=== PATIENT | male | born 1975 | race Caucasian/White ===

== ENCOUNTER 2017-10-11 06:16 | Emergency (ER) | payer SELFPAY ==
[~2017-10-11] VITALS: Ht 170.2 cm; Wt 86.2 kg
[2017-10-11 06:45] VITALS: BP 112/30
[2017-10-11 06:55] VITALS: BP 112/30
--- NOTE | 2017-10-11 07:11 | Emergency Room Report ---
History of Present Illness General Chief Complaint: Chest Pain Source: Patient Present Illness HPI 42YOM walk-in with chest pain for 2 days Substernal, left sided, sharp. Non radiating. No SOB, nausea/vomiting Denies ETOH, drug use +smoker No medical problems Also "Feels dehydrated" - hasnt slept in a week. Homeless. Traveling [place] from [place] of [place]. Denies nausea/vomiting, diarrhea, sick contacts Allergies: Coded Allergies: No Known Allergies (Unverified , 10/11/17) Patient History Past Medical History: none Past Surgical History: none Pertinent Family History: none Social History: Reports: smoking Immunizations: UTD Reviewed Nursing Documentation: PMH: Agreed, PSxH: Agreed Nursing Documentation-PMH Past Medical History: No Stated History Review of Systems All Other Systems: negative except mentioned in HPI Physical Exam Vital Signs Date Time Temp Pulse Resp B/P (MAP) Pulse Ox O2 Delivery O2 Flow Rate FiO2 10/11/17 06:19 97.9 107 20 112/30 97 Room Air Sp02 EP Interpretation: reviewed, normal General Appearance: normal inspection, well appearing, no apparent distress, alert, GCS 15, non-toxic Head: normocephalic, atraumatic Eyes: bilateral eye PERRL, bilateral eye EOMI ENT: normal ENT inspection, hearing grossly normal, normal voice Neck: normal inspection, full range of motion, supple, no bony tend Respiratory: normal inspection, lungs clear, normal breath sounds, no respiratory distress, no retraction, no wheezing Cardiovascular #1: regular rate, rhythm, no edema Gastrointestinal: normal inspection, normal bowel sounds, non tender, soft, no guarding, no hernia Genitourinary: no CVA tenderness Musculoskeletal: normal inspection, back normal, normal range of motion, Maura' s Sign negative Neurologic: normal inspection, alert, oriented x3, responsive, experiential therapist III-XII nml as tested, speech normal Psychiatric: normal inspection, judgement/insight normal, mood/affect normal Skin: normal inspection, normal color, no rash, warm/dry, palpation normal Medical Decision Making Diagnostic Impression: Primary Impression: Dehydration Additional Impression: Chest pain Qualified Codes: R07.9 - Chest pain, unspecified ER Course Chest pain for 2 days VSS. Afebrile No CAD risk factors ECG is NSR, no ischemia Unlikely ACS, PE given 2 days of pain, normal vitals, normal ECG I wanted to do additional lab tests, troponin, IVF hydration Patient initially agreed and then stated he "doesnt like needles" and "doesnt want an IV" and "will take care of this on my own." Tolerating PO in the ED Took list of shelters DC EKG Diagnostic Results Rate: normal Rhythm: NSR ST Segments: no acute changes ASA given to the pt in ED: No Rhythm Strip Diag. Results EP Interpretation: yes Rate: 65 Rhythm: NSR, no PVC's, no ectopy Last Vital Signs Date Time Temp Pulse Resp B/P (MAP) Pulse Ox O2 Delivery O2 Flow Rate FiO2 10/11/17 06:45 94 20 Room Air 10/11/17 06:45 97.9 112/30 97 Status: improved Disposition: HOME, SELF-CARE Condition: Improved NELLA PHAN M.D. Oct 11, 2017 07:11
--- NOTE | 2017-10-13 16:59 | Cardiology Report ---
APPROVED REPORT EKG Measurement Heart [id number] Normal sinus rhythm Normal ECG
== END 2017-10-11 06:55 | disposition home or self-care (01) ==
LOC: EMR 06:40
DX: E86.0 Dehydration (principal); R07.9 Chest pain, unspecified; Z59.0 Homelessness; F17.200 Nicotine dependence, unspecified, uncomplicated
CPT/HCPCS: 93005; 99283